=== PATIENT | male | born 1950 | race Caucasian/White ===

== ENCOUNTER → 2021-03-12 | Outpatient (CLI) | payer MEDICARE ==
--- NOTE | 2021-03-12 12:27 | DIREP ---
PROCEDURE:CT ABD/PELVIS WITHOUT CONTRAST TECHNIQUE:No oral contrast was given. Axial cuts were obtained through the abdomen and pelvis without IV contrast. The images were viewed at lung and soft tissue settings. Sagittal and coronal reconstructions are provided. COMPARISON:None. INDICATIONS:HEPATOMEPALY, RUQ PAIN FINDINGS: LOWER CHEST:Linear parenchymal scarring or subsegmental atelectasis is noted in the lung bases. LIVER:No contour abnormality or mass is demonstrated on these noncontrast enhanced images. No hepatomegaly is present. BILIARY:Normal. PANCREAS:Normal. SPLEEN:A single small granulomas noted. URINARY TRACT:No nephrolithiasis or hydronephrosis is demonstrated. 3.3 cm cyst is noted in the posterior aspect of the upper right kidney. ADRENALS:Normal. AORTA/VASCULAR:Normal. RETROPERITONEUM:Normal. BOWEL/MESENTERY:A very small hiatal hernia is noted. Mild diverticulosis is noted within the descending colon. No inflammatory changes are seen within the mesenteric fat. ABDOMINAL WALL:Normal. PELVIS:Normal. BONES:Moderate degenerative changes of the lower thoracic and lumbar spine are noted. Degenerative disc disease with vacuum discs is noted at 2 levels within the lumbar spine. OTHER:Normal. CONCLUSION: 1. The size of the liver is within normal limits. No contour abnormality to suggest cirrhosis is seen. 2. Mild diverticulosis is noted incidentally as well as a very small hiatal hernia. Dictated by: Fermin Lynch M.D. on 03/12/2021 at 12:17 PM
== END | disposition home or self-care (01) ==
LOC: RAD 09:43
PROVIDERS: ATTEND Specialist
DX: K57.30 Diverticulosis of large intestine without perforation or abscess without bleeding (principal); K44.9 Diaphragmatic hernia without obstruction or gangrene; D73.89 Other diseases of spleen; N28.1 Cyst of kidney, acquired; M47.815 Spondylosis without myelopathy or radiculopathy, thoracolumbar region; R16.0 Hepatomegaly, not elsewhere classified
CPT/HCPCS: 74150

== ENCOUNTER → 2021-08-25 | Outpatient (CLI) | payer MEDICARE | END | disposition home or self-care (01) | LOC: NPLAB 17:45 | PROVIDERS: ATTEND Specialist | DX: Z20.822 Contact with and (suspected) exposure to COVID-19 (principal) | CPT/HCPCS: 87633 ==

== ENCOUNTER → 2021-08-25 | Outpatient (CLI) | payer MEDICARE ==
[2021-08-25 15:45] LABS: MEAN CORP HGB 33.9 pg (26-34)
[2021-08-25 16:09] LABS: CARBON DIOXIDE 23.1 mmol/L (20.0-32)
== END | disposition home or self-care (01) ==
LOC: LAB 15:28
PROVIDERS: ATTEND Specialist
DX: I38 Endocarditis, valve unspecified (principal); R09.02 Hypoxemia; R06.00 Dyspnea, unspecified
CPT/HCPCS: 36415; 80053; 85027; 85379; 86140

== ENCOUNTER → 2021-08-28 | Outpatient (CLI) | payer MEDICARE ==
--- NOTE | 2021-08-28 16:46 | DIREP ---
PROCEDURE:CT CHEST W&W/O COMPARISON:None. INDICATIONS:HYPOXEMIA TECHNIQUE:Helical sections through the chest were performed from the lung apices through the diaphragms with and without IV contrast. Sagittal and coronal reconstructions are obtained from source images. FINDINGS: LUNGS:Mild scarring in both lung bases. PLEURA:Normal. No mass or effusion. CARDIAC:Status post aortic valvuloplasty. Coronary artery calcifications. Heart size within normal limits. MEDIASTINUM:Normal. No mass or adenopathy. RENAE:Normal. No mass or adenopathy. AORTA:Scattered calcified plaque. CHEST WALL:Normal. No mass or axillary adenopathy. LIMITED ABDOMEN:Partially imaged fluid density lesion posterior cortex right kidney thought to be a cyst on CT abdomen without contrast 03/12/2021 however no contrast given. Consider renal ultrasound correlation. Calcified plaque in the aorta. Calcified granuloma in the spleen. BONES:Sternotomy. Mild height loss of the inferior endplate of T6 is age indeterminate. OTHER:Negative. CONCLUSION: 1. Mild scarring in both lung bases but no acute infiltrate. 2. See above incidental findings. Dictated by: Deandre Abarca M.D. on 08/28/2021 at 04:37 PM
== END | disposition home or self-care (01) ==
LOC: RAD 15:29
PROVIDERS: ATTEND Specialist
DX: J98.4 Other disorders of lung (principal); I25.10 Atherosclerotic heart disease of native coronary artery without angina pectoris
CPT/HCPCS: 71270; Q9966

== ENCOUNTER → 2023-06-28 | Outpatient (CLI) | payer MEDICARE ==
[~2023-06-28] MED LIST: CARV6.252 PO; CEFA500C PO
[2023-06-28 11:14] LABS: BASOPHIL % 0.4 % (0.0-0.2); EOSINOPHIL # 0.2 10^3/uL (0.0-0.2); EOSINOPHIL % 3.9 % (0.0-5.0); HEMATOCRIT(ML) 41.2 % (37.0-53.0); HEMOGLOBIN 13.4 g/dL (13.9-16.3); LYMPHOCYTES # 0.56 10^3/uL1 (1.0-4.8); LYMPHOCYTES % 12.3 % (24.0-44.0); MEAN CORP HGB 31.5 pg (26-34); MEAN CORP HGB CONCENTRATION 32.5 g/dL (33-36.5); MEAN CORP VOLUME 96.7 fL (78-100); MONOCYTES # 0.8 10^3/uL (0.3-0.8); MONOCYTES % 17.1 % (5.0-12.0); NEUTROPHILS % 66.1 % (41.0-85.0); PLATELET COUNT 120 10^3/uL (150-400); RED BLOOD CELL 4.26 10^6/uL (4.50-5.90); RED CELL DISTRIBUTION WIDTH 12.5 % (11.5-14.5); WHITE BLOOD CELL 4.6 10^3/uL (4.5-11.0)
[2023-06-28 11:38] LABS: ALBUMIN(ML) 3.7 g/dL (3.4-5.0); ANION GAP 10.1; BUN/CREATININE RATIO 13.63 (10.0-20.0); CALCIUM 9.5 mg/dL (8.4-10.5); CARBON DIOXIDE 24.8 mmol/L (20.0-32); CREATININE SERUM 1.32 mg/dL (0.59-1.40); EST GFR, NON-AA 53.3 (>/=60); POTASSIUM 3.9 mmol/L (3.6-5.2)
[2023-06-28 11:39] LABS: +ADD MANUAL DIFF(NO CHRG) NO
== END | disposition home or self-care (01) ==
LOC: LAB 10:58
PROVIDERS: ATTEND Specialist
DX: R05.9 Cough, unspecified (principal); E78.00 Pure hypercholesterolemia, unspecified
CPT/HCPCS: 36415; 80053; 83605; 84146; 85025; 86141

== ENCOUNTER → 2023-06-28 | Outpatient (CLI) | payer MEDICARE ==
[2023-06-28 13:12] LABS: CORO 229E NotDetected (NotDetected); CORO HKU1 NotDetected (NotDetected); CORO OC43 NotDetected (NotDetected); RHINOVIRUS/ ENTEROVIRUS DETECTED (NotDetected); SARS CoV 2 NotDetected (NotDetected)
== END | disposition home or self-care (01) ==
LOC: NPLAB 11:40
PROVIDERS: ATTEND Specialist
DX: R05.9 Cough, unspecified (principal); Z20.822 Contact with and (suspected) exposure to COVID-19
CPT/HCPCS: 87637

== ENCOUNTER 2023-08-02 06:48 | Day surgery (SDC) | payer MEDICARE ==
[2023-07-27 10:01] VITALS: BP 148/65; PULSE 57; RESP 16; TEMP 97.4; O2SAT 95
[2023-07-27 10:38] LABS: BASOPHIL % 0.3 % (0.0-0.2); EOSINOPHIL # 0.3 10^3/uL (0.0-0.2); EOSINOPHIL % 7.5 % (0.0-5.0); HEMATOCRIT(ML) 40.6 % (37.0-53.0); HEMOGLOBIN 13.5 g/dL (13.9-16.3); IG % 0.3 % (0.00-0.50); LYMPHOCYTES # 1.14 10^3/uL1 (1.0-4.8); LYMPHOCYTES % 28.5 % (24.0-44.0); MEAN CORP HGB 31.3 pg (26-34); MEAN CORP HGB CONCENTRATION 33.3 g/dL (33-36.5); MONOCYTES # 0.7 10^3/uL (0.3-0.8); MONOCYTES % 16.8 % (5.0-12.0); NEUTROPHIL # 1.9 10^3/uL (1.8-7.7); NEUTROPHILS % 46.6 % (41.0-85.0); RED BLOOD CELL 4.32 10^6/uL (4.50-5.90); RED CELL DISTRIBUTION WIDTH 13.1 % (11.5-14.5)
[2023-07-27 10:51] LABS: PROTHROMBIN PROTIME 10.3 SEC (9.7-11.6)
[2023-07-27 10:54] LABS: ALBUMIN(ML) 3.5 g/dL (3.4-5.0); ALBUMIN/GLOBULIN RATIO 0.921; ANION GAP 12.9; BUN/CREATININE RATIO 21.27 (10.0-20.0); CARBON DIOXIDE 27.5 mmol/L (20.0-32); CREATININE SERUM 1.41 mg/dL (0.59-1.40); EST GFR, NON-AA 49.4 (>/=60); POTASSIUM 4.4 mmol/L (3.6-5.2)
[~2023-08-02] VITALS: Ht 175.3 cm; Wt 84.0 kg
[~2023-08-02 06:48] MED LIST changes: +ACET1TAB57 PO; +AMLO-170 PO; +LORA10TA3 PO; +LOSA50TA14 PO; +NS 1000ML 1,000 ML ONE; +PANT40TA3 PO
[2023-08-02 07:00] VITALS: BP 147/69; PULSE 53; RESP 18; TEMP 98; O2SAT 99
[2023-08-02] MEDS ORDERED: NS 1000ML 1,000 ML IV SCH (07:00)
[2023-08-02] MEDS ORDERED: SUBLIMAZE 100MCG/2ML ONE (07:39)
[2023-08-02] MEDS ORDERED: VERSED ONE (07:39)
[2023-08-02] MEDS ORDERED: XYLOCAINE ONE (07:39)
[2023-08-02 08:55] VITALS: BP 129/79; PULSE 56; RESP 16; TEMP 98.4; O2SAT 96
[2023-08-02] MEDS ORDERED: CEPH500C PO (08:55)
[2023-08-02 09:10] VITALS: BP 147/80; PULSE 57; RESP 16; O2SAT 97
[2023-08-02 09:35] VITALS: BP 141/79; PULSE 55; RESP 16; O2SAT 97
== END 2023-08-02 09:50 | disposition home or self-care (01) ==
LOC: SDC 06:48
PROVIDERS: ATTEND Specialist
DX: R42 Dizziness and giddiness (principal); I47.20 Ventricular tachycardia, unspecified; I48.91 Unspecified atrial fibrillation; I50.22 Chronic systolic (congestive) heart failure; I45.89 Other specified conduction disorders; K21.9 Gastro-esophageal reflux disease without esophagitis; N18.9 Chronic kidney disease, unspecified; Z86.16 Personal history of COVID-19; Z90.49 Acquired absence of other specified parts of digestive tract; Z82.49 Family history of ischemic heart disease and other diseases of the circulatory system; Z82.3 Family history of stroke; Z80.9 Family history of malignant neoplasm, unspecified
CPT/HCPCS: 80053; 85025; 36415; 85610; 33285; J7030; A6258; A4649; J2250; J3010; C1764

== ENCOUNTER → 2023-09-01 | Outpatient (CLI) | payer MEDICARE ==
[~2023-09-01] MED LIST changes: +CEPH500C PO; -NS 1000ML 1,000 ML ONE
== END | disposition home or self-care (01) ==
LOC: RAD 10:46
PROVIDERS: ATTEND Specialist
DX: M25.551 Pain in right hip (principal)
CPT/HCPCS: 73502

== ENCOUNTER → 2023-11-02 | Outpatient (CLI) | payer MEDICARE | END | disposition home or self-care (01) | LOC: RAD 12:00 | PROVIDERS: ATTEND Orthopaedic Surgery | DX: M12.852 Other specific arthropathies, not elsewhere classified, left hip (principal); M12.851 Other specific arthropathies, not elsewhere classified, right hip; K40.90 Unilateral inguinal hernia, without obstruction or gangrene, not specified as recurrent; M25.451 Effusion, right hip | CPT/HCPCS: 73721 ==

== ENCOUNTER → 2024-05-22 | Outpatient (CLI) | payer MEDICARE | END | disposition home or self-care (01) | LOC: RAD 12:20 | PROVIDERS: ATTEND Pain Medicine Pain Medicine | DX: M51.35 Other intervertebral disc degeneration, thoracolumbar region (principal); M47.896 Other spondylosis, lumbar region; M47.815 Spondylosis without myelopathy or radiculopathy, thoracolumbar region; M48.07 Spinal stenosis, lumbosacral region; Q76.49 Other congenital malformations of spine, not associated with scoliosis | CPT/HCPCS: 72148 ==

== ENCOUNTER → 2024-09-04 | Outpatient (CLI) | payer MEDICARE | END | disposition home or self-care (01) | LOC: RAD 10:39 | PROVIDERS: ATTEND Orthopaedic Surgery | DX: M16.11 Unilateral primary osteoarthritis, right hip (principal); M47.817 Spondylosis without myelopathy or radiculopathy, lumbosacral region; M25.551 Pain in right hip | CPT/HCPCS: 73502 ==

== ENCOUNTER 2024-09-24 06:05 | Observation (INO) | payer MEDICARE ==
[2024-09-20 14:42] VITALS: BP 163/74; PULSE 74; RESP 18; TEMP 98.2; O2SAT 97
[2024-09-20 15:15] LABS: BASOPHIL % 0.2 % (0.2-1.2); EOSINOPHIL # 0.3 10^3/uL (0.0-0.2); EOSINOPHIL % 5.7 % (0.0-5.0); HEMATOCRIT(ML) 42.4 % (37.0-53.0); HEMOGLOBIN 13.8 g/dL (13.9-16.3); LYMPHOCYTES % 19.5 % (24.0-44.0); MEAN CORP HGB CONCENTRATION 32.5 g/dL (33-36.5); MEAN CORP VOLUME 95.3 fL (78-100); MONOCYTES # 0.9 10^3/uL (0.3-0.8); MONOCYTES % 17.2 % (5.0-12.0); NEUTROPHIL # 2.9 10^3/uL (1.8-7.7); PLATELET COUNT 151 10^3/uL (150-400); RED BLOOD CELL 4.45 10^6/uL (4.50-5.90); RED CELL DISTRIBUTION WIDTH 14.1 % (11.5-14.5); WHITE BLOOD CELL 5.1 10^3/uL (4.5-11.0)
[2024-09-20 15:16] LABS: +ADD MANUAL DIFF(NO CHRG) NO
[2024-09-20 15:17] LABS: BILIRUBIN,URINE NEGATIVE (NEGATIVE); LEUKOCYTE ESTERASE ,URINE NEGATIVE (NEGATIVE); NITRATE,URINE NEGATIVE (NEGATIVE); PH,URINE 5.5 (4.5-8.0); UROBILINOGEN,URINE 0.2 E.U./dL (0.2)
[2024-09-20 15:23] LABS: APPEARANCE,URINE CLEAR; UA COLOR YELLOW
[2024-09-20 15:36] LABS: ALBUMIN(ML) 3.8 g/dL (3.4-5.0); ALBUMIN/GLOBULIN RATIO 0.926; ANION GAP 11.1; BUN/CREATININE RATIO 10.94 (10.0-20.0); CALCIUM 9.2 mg/dL (8.4-10.5); CARBON DIOXIDE 28.9 mmol/L (20.0-32); CREATININE SERUM 1.37 mg/dL (0.59-1.40); EST GFR, NON-AA 50.9 (>/=60)
[2024-09-20 18:00] LABS: PROTHROMBIN PROTIME 10.4 SEC (9.3-11.6)
[~2024-09-24] VITALS: Ht 175.3 cm; Wt 84.0 kg
[2024-09-24] VITALS (20 sets, daily range): BP systolic 106–144; BP diastolic 45–83; PULSE 55–70; RESP 16–20; TEMP 97–99.7; O2SAT 90–96
[2024-09-24] MEDS: DILAUDID IV ONE ×4 (00:03→10:16)
[2024-09-24] MEDS: NS 1000ML 1,000 ML SCH (00:03)
[~2024-09-24 06:05] MED LIST changes: +NS 100ML 100 ML IV ONE
[2024-09-24] MEDS ORDERED: APIX5TAB PO (06:42)
[2024-09-24] MEDS ORDERED: CARV12.52 PO (06:42)
[2024-09-24] MEDS ORDERED: ASPI-667 PO (06:42)
[2024-09-24] MEDS: NS 1000ML 1,000 ML IV SCH ×2 (06:50→15:00)
[2024-09-24] MEDS: CELEBREX PO ONE (07:14)
[2024-09-24] MEDS: NEURONTIN PO ONE (07:14)
[2024-09-24] MEDS: DECADRON IV ONE (07:14)
[2024-09-24] MEDS: ULTRAM PO ONE (07:15)
[2024-09-24] MEDS ORDERED: OFIRMEV 1000 MG/100 ML 100 ML IV ONE (07:25)
[2024-09-24] MEDS ORDERED: SUBLIMAZE 100MCG/2ML ONE ×2 (07:26→08:32)
[2024-09-24] MEDS ORDERED: PEPCID IV ONE (07:26)
[2024-09-24] MEDS ORDERED: TRANEXAMIC ACID ONE (07:26)
[2024-09-24] MEDS ORDERED: DIPRIVAN IV ONE (07:26)
[2024-09-24] MEDS ORDERED: XYLOCAINE 2% 5ML VIAL ONE (07:26)
[2024-09-24] MEDS ORDERED: ZOFRAN ONE ×2 (07:26→08:31)
[2024-09-24] MEDS ORDERED: NS 3000ML IRR IR ONE (07:30)
[2024-09-24] MEDS ORDERED: WATER ONE (07:30)
[2024-09-24] MEDS: ROCEPHIN IV ONE (07:30)
[2024-09-24] MEDS ORDERED: SODIUM CHLORIDE IRR BOTTLE IR ONE (07:31)
[2024-09-24] MEDS ORDERED: NS 250ML 250 ML ONE (07:31)
[2024-09-24] MEDS: BACTROBAN OINTMENT TP ONE (08:00)
[2024-09-24] MEDS ORDERED: REGLAN ONE (08:31)
[2024-09-24] MEDS ORDERED: DILAUDID ONE (08:32)
[2024-09-24] MEDS ORDERED: CEPACOL SORE THROAT LOZENGE MM PRN (11:00)
[2024-09-24] MEDS ORDERED: ULTRAM PO PRN (11:00)
[2024-09-24] MEDS ORDERED: ZOFRAN IV PRN (11:00)
[2024-09-24] MEDS: TYLENOL PO SCH (13:18)
[2024-09-24] MEDS: ANCEF 2 GM/D5W 50ML 50 ML IV SCH (13:18)
[2024-09-24] MEDS: ULTRAM PO PRN (13:32)
[2024-09-24 19:11] LABS: HEMATOCRIT(ML) 39.1 % (37.0-53.0); HEMOGLOBIN 12.6 g/dL (13.9-16.3); MEAN CORP HGB 31.3 pg (26-34); MEAN CORP HGB CONCENTRATION 32.2 g/dL (33-36.5); RED BLOOD CELL 4.03 10^6/uL (4.50-5.90); RED CELL DISTRIBUTION WIDTH 13.9 % (11.5-14.5)
[2024-09-24] MEDS: COREG PO SCH (20:16)
[2024-09-24] MEDS ORDERED: COREG PO SCH (21:00)
[2024-09-24] MEDS: TORADOL IV ONE (23:21)
[2024-09-25] VITALS (8 sets, daily range): BP systolic 127–151; BP diastolic 71–88; PULSE 61–74; RESP 16–20; TEMP 97.1–98.5; O2SAT 91–93
[2024-09-25 06:16] LABS: HEMATOCRIT(ML) 35.6 % (37.0-53.0); HEMOGLOBIN 11.7 g/dL (13.9-16.3); MEAN CORP HGB 31.4 pg (26-34); MEAN CORP HGB CONCENTRATION 32.9 g/dL (33-36.5); MEAN CORP VOLUME 95.4 fL (78-100); RED BLOOD CELL 3.73 10^6/uL (4.50-5.90); RED CELL DISTRIBUTION WIDTH 13.9 % (11.5-14.5); WHITE BLOOD CELL 9.7 10^3/uL (4.5-11.0)
[2024-09-25] MEDS: CLARITIN PO SCH (08:20)
[2024-09-25] MEDS: COLACE PO SCH (08:20)
[2024-09-25] MEDS: PROTONIX PO SCH (08:20)
[2024-09-25] MEDS: NORVASC PO SCH (08:20)
[2024-09-25] MEDS: COZAAR PO SCH (08:21)
[2024-09-25] MEDS: ASPIRIN PO SCH (08:21)
[2024-09-25] MEDS: PEPCID PO SCH (08:21)
[2024-09-25] MEDS: XARELTO PO SCH (11:20)
[2024-09-25] MEDS: DILAUDID IV PRN (12:49)
[2024-09-26] VITALS (7 sets, daily range): BP systolic 128–154; BP diastolic 69–78; PULSE 67–83; RESP 16–19; TEMP 97.2–98.5; O2SAT 91–95
[2024-09-26] MEDS ORDERED: IMODIUM PO PRN (08:30)
[2024-09-26] MEDS: IMODIUM PO STA (08:35)
[2024-09-26] MEDS ORDERED: TYLENOL #4 PO PRN (09:30)
[2024-09-26] MEDS: TYLENOL #4 PO PRN (14:20)
[2024-09-26] MEDS ORDERED: ACET1TAB63 PO (15:55)
== END 2024-09-26 16:47 | disposition home or self-care (01) ==
LOC: SDC 06:05 → OBS 12:59
PROVIDERS: ADMIT Orthopaedic Surgery; ATTEND Orthopaedic Surgery
DX: M87.051 Idiopathic aseptic necrosis of right femur (principal); M13.851 Other specified arthritis, right hip; M54.9 Dorsalgia, unspecified; I13.0 Hypertensive heart and chronic kidney disease with heart failure and stage 1 through stage 4 chronic kidney disease, or unspecified chronic kidney disease; N18.9 Chronic kidney disease, unspecified; I50.9 Heart failure, unspecified; K21.9 Gastro-esophageal reflux disease without esophagitis; I48.91 Unspecified atrial fibrillation; E78.5 Hyperlipidemia, unspecified; J30.2 Other seasonal allergic rhinitis; I38 Endocarditis, valve unspecified; M87.9 Osteonecrosis, unspecified; Z79.899 Other long term (current) drug therapy
CPT/HCPCS: 36415; 73502; 76000; 80053; 81001; 85025; 85027; 85610; 87070; 93005; 96365; 96366; 96375; 96376; 97162; 97165; 97530; A4217; C1776; G0378; J0131; J0690; J0696; J1100; J1171; J1885; J2003; J2405; J2704; J2765; J3010; J3490; J7030; J7050; J8499; 97110-GO; 97110-GP; 97116-GP

== ENCOUNTER → 2024-11-22 | Outpatient (CLI) | payer MEDICARE ==
[~2024-11-22] MED LIST changes: +ACET1TAB63 PO; +APIX5TAB PO; +ASPI-667 PO; +CARV12.52 PO; -NS 100ML 100 ML IV ONE
[2024-11-22 13:47] LABS: ABSOLUTE RETICS # 0.0423 10^6uL; BASOPHIL % 0.4 % (0.2-1.2); EOSINOPHIL # 0.3 10^3/uL (0.0-0.2); EOSINOPHIL % 5.8 % (0.0-5.0); HEMATOCRIT(ML) 40.7 % (37.0-53.0); HEMOGLOBIN 13.6 g/dL (13.9-16.3); LYMPHOCYTES # 1.39 10^3/uL1 (1.0-4.8); LYMPHOCYTES % 27.7 % (24.0-44.0); MEAN CORP HGB 31.5 pg (26-34); MEAN CORP HGB CONCENTRATION 33.4 g/dL (33-36.5); MEAN CORP VOLUME 94.2 fL (78-100); MONOCYTES # 0.6 10^3/uL (0.3-0.8); MONOCYTES % 12.7 % (5.0-12.0); NEUTROPHIL # 2.7 10^3/uL (1.8-7.7); PLATELET COUNT 156 10^3/uL (150-400); RED BLOOD CELL 4.32 10^6/uL (4.50-5.90); RED CELL DISTRIBUTION WIDTH 13.1 % (11.5-14.5)
[2024-11-22 13:48] LABS: APPEARANCE,URINE CLEAR; LEUKOCYTE ESTERASE ,URINE NEGATIVE (NEGATIVE); NITRATE,URINE NEGATIVE (NEGATIVE); PH,URINE 5.5 (4.5-8.0); UA COLOR YELLOW; UROBILINOGEN,URINE 0.2 E.U./dL (0.2)
[2024-11-22 13:49] LABS: +ADD MANUAL DIFF(NO CHRG) NO
[2024-11-22 13:59] LABS: UAMPH METHAMP(SCRN) NEGATIVE (co1000ng/mL); UR MDMA (ECSTASY) SCRN NEGATIVE (c/o300ng/mL); UR METHADONE SCRN NEGATIVE (c/o300ng/mL); UR PHENCYCLIDINE (PCP) SCRN NEGATIVE (c/o 25ng/mL); UR TETRAHYDROCANNABINOL SCRN NEGATIVE (c/o 50ng/mL)
[2024-11-22 14:00] LABS: UR OPIATE SCRN PRESUMPTIVE POSITIVE (c/o300ng/mL)
[2024-11-22 14:29] LABS: ALANINE AMINOTRANSFERASE(ML) 16 U/L (12-78); ALBUMIN(ML) 3.9 g/dL (3.4-5.0); ALKALINE PHOSPHATASE 119 U/L (50-136); ANION GAP 10.1; ASPARTATE AMINO TRANSFERASE 15 U/L (0-35); BILIRUBIN,DIRECT 0.3 mg/dL (0.0-0.3); BILIRUBIN,INDIRECT 0.6 mg/dL; C-REACTIVE PROTEIN < 0.50 mg/dL (0.00-5.00); CALCIUM 8.7 mg/dL (8.4-10.5); CARBON DIOXIDE 27.6 mmol/L (20.0-32); CHOLESTEROL 145 mg/dL (120-240); CREATININE SERUM 1.38 mg/dL (0.59-1.40); EST GFR, NON-AA 50.4 (>/=60); GLUCOSE 105 mg/dL (74-106); HDL CHOLESTEROL 83 mg/dL (32-96); LDL/HDL RATIO 0.5; POTASSIUM 3.7 mmol/L (3.6-5.2); SODIUM 139 mmol/L (132-145); URIC ACID 7.6 mg/dL (3.5-7.2)
[2024-11-23 08:17] LABS: ESTRADIOL 29.8 pg/mL (7.6-42.6); FOLLICLE STIMULATING HORMONE 33.5 mIU/mL (1.5-12.4); THYROID PEROXIDASE (TPO) AB <9 IU/mL (0-34); TRIIODOTHYRONINE (TOTALT3-REF) 84 ng/dL (71-180)
[2024-11-23 09:14] LABS: THYROGLOBULIN ANTIBODY <1.0 IU/mL (0.0-0.9)
[2024-11-29 12:16] LABS: OPIATES Positive (.)
== END | disposition home or self-care (01) ==
LOC: LAB 12:53
PROVIDERS: ATTEND Internal Medicine
DX: I11.0 Hypertensive heart disease with heart failure (principal); I50.9 Heart failure, unspecified; E03.4 Atrophy of thyroid (acquired); M81.0 Age-related osteoporosis without current pathological fracture; M06.4 Inflammatory polyarthropathy; R73.01 Impaired fasting glucose; D51.0 Vitamin B12 deficiency anemia due to intrinsic factor deficiency; R82.90 Unspecified abnormal findings in urine; D64.9 Anemia, unspecified; E34.9 Endocrine disorder, unspecified; E55.9 Vitamin D deficiency, unspecified; Z79.899 Other long term (current) drug therapy
CPT/HCPCS: 87086; 80053; 85025; 84153; 80361; 36415; 84439; 86480; 82306; 80061; 86800; 84481; 80307; 84403; 84402; 83970; 83695; 82610; 83721; 81001; 82728; 82607; 82043; 82570; 87186; 83001; 84443; 83550; 84550; 83036; 86376; 85045; 85651; 86140; 87077; 82670; 83002; G0480; 80076; 80321; 84436; 84480